=== PATIENT | female | born 1985 | race Caucasian/White ===

== ENCOUNTER 2017-01-27 14:58 | Emergency (ER) | payer OTHER ==
[~2017-01-27] VITALS: Ht 170.2 cm; Wt 103.8 kg
[2017-01-27 15:03] VITALS: BP 112/77
[2017-01-27] MEDS ORDERED: FLUORESCEIN OPHTHALMIC 1 MG STRIP RIGHTEYE ONE (15:30)
[2017-01-27] MEDS ORDERED: PROPARACAINE OPHTH 0.5%, 15ML RIGHTEYE ONE (15:30)
[2017-01-27] MEDS ORDERED: FLUORESCEIN OPHTHALMIC 1 MG STRIP ONE (15:48)
[2017-01-27] MEDS ORDERED: PROPARACAINE OPHTH 0.5%, 15ML ONE (15:48)
== END 2017-01-27 16:11 | disposition home or self-care (01) ==
LOC: ED 15:45
DX: H10.31 Unspecified acute conjunctivitis, right eye (principal); B30.9 Viral conjunctivitis, unspecified
CPT/HCPCS: 99283

== ENCOUNTER 2017-01-27 17:10 | Emergency (ER) | payer OTHER ==
[~2017-01-27] VITALS: Ht 170.2 cm; Wt 103.3 kg
[2017-01-27 18:10] LABS: BLOOD UREA NITROGEN 11 mg/dL (7-18)
[2017-01-27 19:51] VITALS: BP 111/79
== END 2017-01-27 19:52 | disposition home or self-care (01) ==
LOC: ED 19:36
DX: N92.4 Excessive bleeding in the premenopausal period (principal)
CPT/HCPCS: 36415; 76830; 80048; 81001; 84703; 85025; 99285

== ENCOUNTER 2017-03-02 00:14 | Emergency (ER) | payer OTHER ==
[~2017-03-02] VITALS: Ht 170.2 cm; Wt 103.6 kg
[2017-03-02 00:16] VITALS: BP 122/83
[2017-03-02] MEDS ORDERED: KETOROLAC 30 MG/1 ML ONE (01:21)
[2017-03-02] MEDS ORDERED: KETOROLAC 30 MG/1 ML IM ONE (01:30)
== END 2017-03-02 02:03 | disposition home or self-care (01) ==
LOC: ED 01:57
DX: S96.912A Strain of unspecified muscle and tendon at ankle and foot level, left foot, initial encounter (principal); G89.11 Acute pain due to trauma; X58.XXXA Exposure to other specified factors, initial encounter; Y93.89 Activity, other specified; Y92.009 Unspecified place in unspecified non-institutional (private) residence as the place of occurrence of the external cause; Y99.8 Other external cause status
CPT/HCPCS: 73630; 96372; 99284; J1885

== ENCOUNTER 2017-06-28 12:38 | Emergency (ER) | payer MEDICAID ==
[~2017-06-28] VITALS: Ht 170.2 cm; Wt 99.4 kg
[~2017-06-28 12:38] MED LIST: SERT25TA PO
[2017-06-28 13:08] VITALS: BP 121/80
[2017-06-28] MEDS ORDERED: METHOCARBAMOL 750 MG TABLET PO ONE (13:30)
[2017-06-28] MEDS ORDERED: KETOROLAC 30 MG/1 ML IM ONE (13:30)
[2017-06-28] MEDS ORDERED: KETOROLAC 30 MG/1 ML ONE (13:42)
[2017-06-28] MEDS ORDERED: METHOCARBAMOL 750 MG TABLET ONE (13:42)
[2017-06-28] MEDS ORDERED: BACITRACIN OINT 500U/GM, 15 GM TP PRN (15:00)
== END 2017-06-28 15:03 | disposition home or self-care (01) ==
LOC: ED 14:57
DX: S29.012A Strain of muscle and tendon of back wall of thorax, initial encounter (principal); S60.812A Abrasion of left wrist, initial encounter; W11.XXXA Fall on and from ladder, initial encounter; Y93.89 Activity, other specified; Y92.89 Other specified places as the place of occurrence of the external cause; Y99.8 Other external cause status
CPT/HCPCS: 72072; 96372; 99284; J1885

== ENCOUNTER 2017-09-04 14:44 | Emergency (ER) | payer MEDICAID ==
[~2017-09-04] VITALS: Ht 170.2 cm; Wt 100.4 kg
[2017-09-04 14:45] VITALS: BP 112/75
[2017-09-04] MEDS ORDERED: DEXAMETHASONE 4 MG TABLET PO STA (15:32)
[2017-09-04] MEDS ORDERED: DEXAMETHASONE 4 MG TABLET ONE (15:36)
[2017-09-04] MEDS ORDERED: SERT100T PO (15:39)
[2017-09-04] MEDS ORDERED: HYDR25TA11 PO (15:39)
== END 2017-09-04 16:51 | disposition home or self-care (01) ==
LOC: ED 16:40
DX: J20.8 Acute bronchitis due to other specified organisms (principal); J02.8 Acute pharyngitis due to other specified organisms; H92.03 Otalgia, bilateral; F17.200 Nicotine dependence, unspecified, uncomplicated; E66.9 Obesity, unspecified; Z68.34 Body mass index [BMI] 34.0-34.9, adult
CPT/HCPCS: 87081; 87880; 99284

== ENCOUNTER 2018-01-23 14:45 | Emergency (ER) | payer BC, MEDICAID ==
[~2018-01-23] VITALS: Ht 170.2 cm; Wt 107.8 kg
[~2018-01-23 14:45] MED LIST changes: +HYDR25TA11 PO; +SERT100T PO
[2018-01-23] MEDS ORDERED: VIT1CAPS PO (15:19)
[2018-01-23] MEDS ORDERED: BUSP15TA PO (15:19)
[2018-01-23] MEDS ORDERED: ALBUTEROL/IPRATROPIUM 2.5MG/0.5MG, 3 ML ONE (15:28)
[2018-01-23] MEDS ORDERED: ALBUTEROL/IPRATROPIUM 2.5MG/0.5MG, 3 ML NEB ONE (15:30)
[2018-01-23 15:36] LABS: BASOPHILS # (AUTO) 0.05 x10^3/uL (0-0.1); BASOPHILS % (AUTO) 1 % (0-1); EOSINOPHILS # (AUTO) 0.14 x10^3/uL (0-0.4); EOSINOPHILS % (AUTO) 2 % (1-7); LYMPHOCYTES # (AUTO) 2.45 x10^3/uL (1-3.4); LYMPHOCYTES % (AUTO) 26 % (22-44); MD NO; MEAN CORPUSCULAR HGB CONC 34.2 g/dL (32.4-35.8); MEAN CORPUSCULAR VOLUME 96.3 fL (80-100); MEAN PLATELET VOLUME 8.2 fL (7.4-10.4); MONOCYTES # (AUTO) 0.59 x10^3/uL (0.2-0.8); MONOCYTES % (AUTO) 6 % (2-9); NEUTROPHILS # (AUTO) 6.05 x10^3/uL (1.8-6.8); NEUTROPHILS % (AUTO) 65 % (42-75); PLATELET COUNT 332 x10^3/uL (130-400); RED CELL DISTRIBUTION WIDTH 14.2 % (9.6-15.2)
[2018-01-23 15:45] LABS: ALBUMIN 3.5 g/dL (3.4-5.0); ANION GAP 5 mmol/L (5-15); CALCIUM 8.9 mg/dL (8.5-10.1); CHLORIDE 111 mmol/L (98-107); CREATININE 0.63 mg/dL (0.55-1.02)
[2018-01-23 15:49] LABS: TROPONIN I < 0.015 ng/mL (0.000-0.045)
[2018-01-23 16:29] VITALS: BP 119/75
== END 2018-01-23 16:33 | disposition home or self-care (01) ==
LOC: ED 16:21
DX: R06.00 Dyspnea, unspecified (principal); R07.89 Other chest pain; E66.9 Obesity, unspecified
CPT/HCPCS: 36415; 71046; 80048; 82040; 84484; 85025; 93005; 94640; 99285; J7512; J7620

== ENCOUNTER 2018-03-16 08:02 | Emergency (ER) | payer BC, MEDICAID ==
[~2018-03-16] VITALS: Ht 170.2 cm; Wt 104.6 kg
[~2018-03-16 08:02] MED LIST changes: +BUSP15TA PO; +VIT1CAPS PO
[2018-03-16 08:17] VITALS: BP 113/86
[2018-03-16] MEDS ORDERED: KETOROLAC 30 MG/1 ML ONE (09:16)
[2018-03-16] MEDS ORDERED: KETOROLAC 30 MG/1 ML IM ONE (09:30)
== END 2018-03-16 10:24 | disposition home or self-care (01) ==
LOC: ED 10:20
DX: M77.9 Enthesopathy, unspecified (principal); F17.210 Nicotine dependence, cigarettes, uncomplicated
CPT/HCPCS: 29260; 99284

== ENCOUNTER 2018-05-08 17:47 | Emergency (ER) | payer BC, MEDICAID, OTHER ==
[~2018-05-08] VITALS: Ht 170.2 cm; Wt 105.6 kg
[2018-05-08 17:52] VITALS: BP 109/64
== END 2018-05-08 19:35 | disposition home or self-care (01) ==
LOC: ED 18:40
DX: S61.230A Puncture wound without foreign body of right index finger without damage to nail, initial encounter (principal); E66.9 Obesity, unspecified; Z68.36 Body mass index [BMI] 36.0-36.9, adult; Z90.49 Acquired absence of other specified parts of digestive tract; Z90.89 Acquired absence of other organs; F17.200 Nicotine dependence, unspecified, uncomplicated; W45.8XXA Other foreign body or object entering through skin, initial encounter; Y93.89 Activity, other specified; Y92.69 Other specified industrial and construction area as the place of occurrence of the external cause; Y99.0 Civilian activity done for income or pay
CPT/HCPCS: 99284

== ENCOUNTER 2020-04-17 21:58 | Emergency (ER) | payer MEDICAID ==
[~2020-04-17] VITALS: Ht 167.6 cm; Wt 117.7 kg
[~2020-04-17 21:58] MED LIST changes: +HYDR-826 PO; -HYDR25TA11 PO
[2020-04-17 22:11] VITALS: BP 107/53
[2020-04-17] MEDS ORDERED: KETOROLAC 30 MG/1 ML IM ONE (22:30)
[2020-04-17] MEDS ORDERED: HYDROcodone/APAP 5/325 TABLET PO ONE (22:30)
--- NOTE | 2020-04-17 22:33 | NUR ---
PT CAME INTO ED TODAY AFTER BEING AT [facility] (RECEIVED FULL WORK UP) FOR PAIN IN RIGHT SHOULDER. REPORTS COUGHING SIGNIFICANTLY THE LAST FEW WEEKS. DENIES TRAUMA TO THE AREA. PT RESP RATE AND RHYTHM WNL, CHEST RISE AND FALL EQUAL BILATERALLY, GROSS NEURO INTACT, PT REPORTS SIGNIFICANT PAIN, CRYING WHEN SHOULDERIS TOUCHED. SIGNIFICANT OTHER AT BS, PT NAD, BED IN LOWEST POSITION, DENIES ADDITIONAL NEEDS AT THIS TIME PT PLACED ON SPO2/BP MONITORING. ANTOINE SU AT BS FOR EVAL AND POC. ROSEANN
[2020-04-17] MEDS ORDERED: HYDROcodone/APAP 5/325 TABLET ONE (22:37)
[2020-04-17] MEDS ORDERED: KETOROLAC 30 MG/1 ML ONE ×2 (22:37→22:42)
--- NOTE | 2020-04-17 22:45 | NUR ---
PT MEDICATED PER AUG FOR PAIN, NAD, WCTM. PT TO BE DC'D
--- NOTE | 2020-04-17 23:19 | NUR ---
Patient given discharge instructions and they have confirmed that they understand the instructions. Patient ambulatory with steady gait. NAD, DENIES ADDITIONAL QUESTIONS OR NEEDS. no personal belongings left in room at wa. states pain is decreased
== END 2020-04-17 23:18 | disposition home or self-care (01) ==
LOC: ED 22:50
DX: S29.012A Strain of muscle and tendon of back wall of thorax, initial encounter (principal); F17.210 Nicotine dependence, cigarettes, uncomplicated; Z90.89 Acquired absence of other organs; X58.XXXA Exposure to other specified factors, initial encounter; Y93.89 Activity, other specified; Y92.89 Other specified places as the place of occurrence of the external cause; Y99.8 Other external cause status
CPT/HCPCS: 96372; 99283; 99406; J1885

== ENCOUNTER 2020-07-24 14:47 | Emergency (ER) | payer MEDICAID, OTHER ==
[~2020-07-24] VITALS: Ht 170.2 cm; Wt 120.2 kg
--- NOTE | 2020-07-24 15:36 | NUR ---
store host: pt from lobby to room 18
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
[2020-07-24] MEDS ORDERED: NEOSPORIN OINT. PKT 1 PACKET ONE (16:08)
[2020-07-24] MEDS ORDERED: DIAZEPAM 5 MG TABLET PO ONE (16:30)
[2020-07-24] MEDS ORDERED: ACETAMINOPHEN 325 MG TABLET PO ONE (16:30)
[2020-07-24] MEDS ORDERED: DIAZEPAM 5 MG TABLET ONE (16:41)
[2020-07-24] MEDS ORDERED: ACETAMINOPHEN 325 MG TABLET ONE (16:41)
--- NOTE | 2020-07-24 16:42 | NUR ---
PATIENT TO IMAGING.
--- NOTE | 2020-07-24 16:53 | NUR ---
PATIENT MEDICATED PER eMAR, NADN, VSS, C-COLLAR IN PLACE, CALL LIGHT WITHIN REACH. WAITING FOR RESULTS OF IMAGING.
--- NOTE | 2020-07-24 17:10 | NUR ---
X-RAY AT BEDSIDE.
--- NOTE | 2020-07-24 17:21 | NUR ---
TOUCH UP PAINTER AT BEDSIDE FOR WOUND CLEANING.
[2020-07-24 18:08] VITALS: BP 111/74
--- NOTE | 2020-07-24 18:32 | NUR ---
ER PROVIDER AT BEDSIDE TO DISCUSS DISCHARGE DISPO.
--- NOTE | 2020-07-24 18:33 | NUR ---
Patient given discharge instructions and prescription and they have confirmed that they understand the instructions. Patient stable and ambulatory with steady gait from ED.
== END 2020-07-24 18:34 | disposition home or self-care (01) ==
LOC: ED 15:54
DX: S16.1XXA Strain of muscle, fascia and tendon at neck level, initial encounter (principal); S60.211A Contusion of right wrist, initial encounter; S20.319A Abrasion of unspecified front wall of thorax, initial encounter; I50.9 Heart failure, unspecified; E66.9 Obesity, unspecified; Z90.49 Acquired absence of other specified parts of digestive tract; Z90.89 Acquired absence of other organs; Z68.41 Body mass index [BMI] 40.0-44.9, adult; V57.6XXA Passenger in pick-up truck or van injured in collision with fixed or stationary object in traffic accident, initial encounter; W22.19XA Striking against or struck by other automobile airbag, initial encounter; Y93.89 Activity, other specified; Y92.488 Other paved roadways as the place of occurrence of the external cause; Y99.8 Other external cause status
CPT/HCPCS: 72125; 99284